=== PATIENT | female | born 1955 | race Caucasian/White ===

== ENCOUNTER → 2024-08-23 08:59 | Outpatient (CLI) | payer MEDICARE, BC, SELFPAY ==
[2024-08-23 10:22] LABS: Alanine Aminotransferase 21 IU/L (<35); Albumin 4.3 g/dL (3.5-5.0); Albumin Globulin Ratio 1.6 (1.0-2.8); Alkaline Phosphatase 72 U/L (38-126); Aspartate Aminotransferase 31 IU/L (14-36); BUN Creatinine Ratio 22.7 (6-22); Bilirubin Total 1.2 mg/dL (0.2-1.3); Blood Urea Nitrogen 20 mg/dL (7-17); Calcium 9.3 mg/dL (8.4-10.2); Carbon Dioxide 30 mmol/L (22-32); Chloride 104 mmol/L (98-107); Cholesterol 294 mg/dL (140-199); Estimated Glomerular Filt Rate > 60 mL/min (>60); Globulin 2.7 g/dL (1.7-4.1); Glucose 91 mg/dL (80-110); HDL Cholesterol 69 mg/dL (40-60); HEMOLYSIS < 15 (0-50); LDL Cholesterol Calculated 201 mg/dL (<100); Sodium 139 mmol/L (137-145); Triglycerides 119 mg/dL (35-150)
== END ==
PROVIDERS: PCP Family Medicine; Referring Provider Physician Assistant; Visit Provider Physician Assistant
DX: I10 Essential (primary) hypertension (principal); E78.5 Hyperlipidemia, unspecified
CPT/HCPCS: 36415; 80053; 80061

== ENCOUNTER 2025-01-09 09:53 | Day surgery (SDC) | payer MEDICARE, BC, SELFPAY ==
[2025-01-09 10:13] VITALS: BP 147/82; PULSE 71; RESP 16; TEMP 36.5; O2SAT 99
[2025-01-09] MEDS: LACTATED RINGERS 1,000 ML 42 ML IV (10:29)
--- NOTE | 2025-01-09 10:38 | P.HP_ITS ---
History of Present Illness History of Present Illness Date Patient Seen: 01/09/25 Time Patient Seen: 10:38 Chief complaint: Screening Colonoscopy Narrative: 69-year-old white female, last colonoscopy in 2018 with diverticulosis. Personal history of breast cancer. Has had some left lower quadrant pain, but otherwise no changes in bowel habits. [facility] Medical History Osteoarthritis of hips, bilateral Sleep apnea Allergies Depression Foot pain Cataracts, bilateral Diverticular disease Cardiac arrhythmia History of breast cancer (~2019) Hyperlipidemia Hypertension Surgical History Anesthesia History of section History of breast surgery (~2019) History of left hip replacement (~07/2023) Family History Father History of heart disease Hypertension Hyperlipidemia Mother Seizure Hypertension Polymyalgia rheumatica Brother Hypertension Sister Multiple myeloma Cancer Grandfather Stroke Grandmother Cancer Grandfather Cancer Grandmother History of heart disease Hyperlipidemia Hypertension Stroke Social History Smoking Status: Never smoker alcohol intake: current Meds Home Medications and Allergies Home Medications Medication Instructions Recorded Confirmed Type atorvastatin 10 mg tablet 10 mg PO DAILY #5 tabs 09/21/24 01/09/25 Rx lisinopril 10 mg tablet 10 mg PO DAILY #90 tabs 10/23/24 01/09/25 Rx sodium,potassium,mag sulfates 17.5 See Rx Instructions PO .COMPLEX 12/08/24 Rx gram-3.13 gram-1.6 gram oral soln #354 mL (Suprep Bowel Prep Kit) Cq10 100 mg PO DAILY 01/09/25 History aspirin 81 mg chewable tablet 81 mg PO DAILY 01/09/25 01/09/25 History Allergies Allergy/AdvReac Type Severity Reaction Status Date / Time albuterol AdvReac Headache Verified 01/09/25 10:30 Exam Vital Signs (past 8 hours): - 01/09/25 10:13 Temperature 97.7 F Pulse Rate 71 Respiratory Rate 16 Blood Pressure 147/82 H Pulse Oximetry 99 Oxygen Delivery Method Room Air Oxygen Delivery Method Room Air Narrative Exam Narrative: Gen: NAD, sitting comfortably in bed, appears well HEENT: Sclera are anicteric, head is normocephalic and atraumatic, trachea is midline. CV: RRR, no JVD Resp: clear to auscultation bilaterally, equal chest wall movement bilaterally Abd: soft, nontender, normoactive bowel sounds Ext: no edema, full range of motion Neuro: Cranial nerves II-XII grossly intact, no focal deficits Skin: No erythema or ecchymosis Assessment & Plan Assessment and plan (1) Colon cancer screening: Status: Acute Assessment & Plan narrative: Patient presents for colonoscopy Risks, benefits, alternatives to colonoscopy explained, including but not limited to bowel perforation or other serious complication requiring surgery at less than 1 in 5000 colonoscopies, abdominal pain, cramping or bleeding and less than 1% of colonoscopies, and the chances that we find a diagnosis that would require further intervention of about 2%. Patient agrees to proceed. Time-Based Coding :: [TOTAL MINUTES] spent with patient and on the chart (including review of chart, obtaining history, exam, reviewing outside data, placing orders, documenting exam and treatment plan, and counseling patient) on [DATE]. PROFEE Dog Food Shredder Operator Document charge(s): No
--- NOTE | 2025-01-09 11:04 | PM.OP.COLON ---
Operative Date/Time/Diagnoses Date of procedure: 01/09/25 Time of procedure: 11:04 Pre-op diagnosis: Colon screening Post-op diagnosis: same (Diverticulosis) Procedure & Clinicians Study performed: Colonoscopy Same procedure as scheduled: Yes Indications: Colon screening Surgeon: Todd Foster Procedure Notes SCOAP/Timeout: Performed Procedure in detail: Time-out was performed. Mac was induced. Patient was placed in left lateral decubitus position. The perineum was inspected without any gross abnormality. Lubricated pediatric colonoscope was inserted and advanced to the cecum. The terminal ileum was intubated. The colonoscope was withdrawn slowly inspecting the circumference of the colon. Extensive sigmoid diverticulosis was noted. Very small polyps may have been missed, prep quality was adequate. Retroflexed view of the rectum showed small, non prolapsed nonbleeding internal hemorrhoids. The scope was withdrawn the patient was taken to PACU in good condition. Scope withdrawal time: 6 Findings: divertiulosis Specimen(s): none sent Complications: none Impression: Diverticulosis Post-procedure Recommendations: Colonoscopy in 10 years Follow up: as needed Disposition: PACU
[2025-01-09 11:06] VITALS: BP 123/73; PULSE 70; RESP 16; TEMP 36.1; O2SAT 96
[2025-01-09 11:11] VITALS: BP 116/77; PULSE 72; RESP 16; O2SAT 97
[2025-01-09 11:16] VITALS: BP 124/85; PULSE 87; RESP 16; TEMP 36.1; O2SAT 96
[2025-01-09 11:24] VITALS: BP 125/83; PULSE 82; RESP 16; TEMP 36.1; O2SAT 96
== END 2025-01-09 11:30 | disposition home or self-care (01) ==
PROVIDERS: PCP Family Medicine; Referring Provider Surgery; Visit Provider Surgery
PROC: 0DJD8ZZ Inspection of Lower Intestinal Tract, Via Natural or Artificial Opening Endoscopic (ICD-10-PCS; CPT 45378; principal; 2025-01-09 11:00)
DX: Z12.11 Encounter for screening for malignant neoplasm of colon (principal); K57.30 Diverticulosis of large intestine without perforation or abscess without bleeding; K64.8 Other hemorrhoids
CPT/HCPCS: G0121; J2405; J2704

== ENCOUNTER → 2025-03-28 06:48 | Outpatient (CLI) | payer MEDICARE, BC, SELFPAY ==
--- NOTE | 2025-03-28 06:50 | DI.US.S_ITS ---
PROCEDURE: US SOFT TISSUE ABDOMEN INDICATIONS: LEFT LOWER QUADRANT/FLANK LUMP X YEARS TECHNIQUE: Real-time focused scanning was performed of the abdomen, with image documentation. COMPARISON: None. FINDINGS/IMPRESSION: Mildly hypoechoic, heterogeneous mass within the area of concern with minimal vascularity measuring 6.6 x 3.5 x 2.2 cm. Etiology is uncertain and includes both benign and malignant etiologies. Consider MRI for further evaluation. Dictated by: Julio Kam M.D. on 03/28/2025 at 13:35 Approved by: Julio Kam M.D. on 03/28/2025 at 13:37
== END ==
LOC: US 06:49
PROVIDERS: PCP Family Medicine; Referring Provider Family Medicine; Visit Provider Family Medicine
DX: R93.89 Abnormal findings on diagnostic imaging of other specified body structures (principal); R19.04 Left lower quadrant abdominal swelling, mass and lump
CPT/HCPCS: 76705

== ENCOUNTER → 2025-04-12 12:00 | Outpatient (CLI) | payer MEDICARE, BC, SELFPAY ==
--- NOTE | 2025-04-12 12:02 | DI.CT.S_ITS ---
PROCEDURE: CT ABDOMEN PELVIS W CON INDICATIONS: Mildly hypoechoic, heterogeneous mass TECHNIQUE: After the administration of intravenous contrast, axial sections acquired from the lung bases to the pubic symphysis. Coronal and sagittal reformats were performed. For radiation dose reduction, the following was used: automated exposure control, adjustment of mA and/or kV according to patient size. COMPARISON: [facility], , US SOFT TISSUE ABDOMEN, 03/28/2025, 7:27. FINDINGS: Image quality: Diagnostic. Lower Chest: No significant findings. ABDOMEN: Liver: No solid mass. Subcentimeter hypoattenuating lesion in segment 7, too small to characterize by CT. Gallbladder: Gallbladder sludge versus small stones. No wall thickening or pericholecystic edema to suggest acute cholecystitis. Biliary ducts: No biliary dilation. Pancreas: No ductal dilation. Spleen: Size is within normal limits. Adrenal Glands: No adrenal nodules. Kidneys and Ureters: No hydronephrosis. No solid mass. No complex renal cystic lesion which requires follow up. Stomach and Bowel: Normal colonic caliber, without significant wall thickening. Colonic diverticulosis without evidence of diverticulitis. Fecal debris within the small bowel. Peritoneum: No abnormal intraperitoneal fluid. No free air. Ventral Wall: No significant ventral hernia. Small umbilical hernia containing fat. There is non complex fat within the left flank. No soft tissue identified. Abdominal Nodes: No retroperitoneal or mesenteric adenopathy by size criteria. Vessels: Aorta and inferior vena cava are normal in size. PELVIS: Pelvic Organs: Unremarkable. Bladder: No bladder wall thickening, accounting for underdistention. Pelvic Nodes: No enlarged lymph nodes. Miscellaneous: No inguinal hernias are seen. Bones: No aggressive osseous abnormality. IMPRESSION: Non complex fat in the left flank, without suspicious soft tissue. 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 If this demonstrates significant interval growth or pain, surgical referral would be recommended to exclude low-grade liposarcoma. Fecal debris within the small-bowel, usually indicating small intestinal bacterial overgrowth versus slow transit. Colonic diverticulosis without evidence of diverticulitis. Dictated by: Twin Newell M.D. on 04/12/2025 at 15:46 Approved by: Twin Newell M.D. on 04/12/2025 at 15:54
[2025-04-12 12:49] LABS: Estimated Glomerular Filt Rate > 60 mL/min (>60)
== END ==
PROVIDERS: PCP Family Medicine; Referring Provider Family Medicine; Visit Provider Family Medicine
DX: K57.90 Diverticulosis of intestine, part unspecified, without perforation or abscess without bleeding (principal); R19.04 Left lower quadrant abdominal swelling, mass and lump; K42.9 Umbilical hernia without obstruction or gangrene
CPT/HCPCS: 36415; 74177; 82565; Q9967

== ENCOUNTER 2025-07-21 17:49 | Emergency (ER) | payer MEDICARE, OTHER, SELFPAY ==
[2025-07-21] VITALS (26 sets, daily range): BP systolic 147–218; BP diastolic 82–106; PULSE 63–92; RESP 8–26; TEMP 37.1; O2SAT 92–98; BMI 32.5
--- NOTE | 2025-07-21 18:09 | EKG_ITS ---
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
[2025-07-21] MEDS: LOSARTAN 50 MG TABLET PO (20:49)
[2025-07-21 22:22] LABS: Add Manual Diff / Slide Review NO; Hematocrit 38.6 % (36-46); Hemoglobin 13.6 g/dL (12.0-16.0); INR 0.9 (0.9-1.3); Lymphocytes Absolute Auto 1000 /uL (1100-4500); Mean Corpuscular HGB Conc 35.2 % (30-36); Mean Corpuscular Hemoglobin 31.5 PG (26-34); Mean Corpuscular Volume 89.5 fL (80-100); Platelet Count 160 X10^3/uL (150-400); Prothrombin Time 10.6 SECONDS (9.4-12.5)
[2025-07-21 22:24] LABS: PTT Partial Thromboplastin Tim 28 SECONDS (25.1-36.5)
[2025-07-21 22:31] LABS: Alanine Aminotransferase 22 IU/L (<35); Albumin 4.4 g/dL (3.5-5.0); Albumin Globulin Ratio 1.4 (1.0-2.8); Alkaline Phosphatase 73 U/L (38-126); Blood Urea Nitrogen 21 mg/dL (7-17); Calcium 9.3 mg/dL (8.4-10.2); Carbon Dioxide 28 mmol/L (22-32); Chloride 105 mmol/L (98-107); Creatine Kinase 121 U/L (30-135); Estimated Glomerular Filt Rate > 60 mL/min (>60); Globulin 3.1 g/dL (1.7-4.1); Glucose 99 mg/dL (70-99); HEMOLYSIS < 15 (0-50); Lipase 146 U/L (23-300); Magnesium 2.1 mg/dL (1.6-2.3); Potassium 3.8 mmol/L (3.4-5.1); Sodium 138 mmol/L (137-145); Total Protein 7.5 g/dL (6.3-8.2)
[2025-07-21 22:43] LABS: NT-proBNP (BNP-Adult 18+) 209 pg/mL (<125); Troponin I < 0.012 ng/mL (0.01-0.034)
[2025-07-21] MEDS: LABETALOL 20 MG/4 ML SYRINGE 5 MG IV (22:46)
--- NOTE | 2025-07-21 23:51 | ED.GENADULT ---
HPI - General Adult General Chief complaint: Hypertension Stated complaint: High BP Time Seen by Provider: 07/21/25 19:49 Source: patient Mode of arrival: Ambulatory History of Present Illness HPI narrative: [age] year old female with a history of hypertension who has recently been instructed by her PCP to start hydrochlorothiazide but has not started it yet comes in for a blood pressure reading that is higher than normal. Patient initially had no symptoms but during her course here in the ED, patient started having a slight headache. She denies any chest pain shortness of breath or any other symptoms. Related Data Home Medications ?Medication ?Instructions ?Recorded ?Confirmed aspirin 81 mg chewable tablet 81 mg PO DAILY 01/09/25 07/13/25 coenzyme Q10 100 mg capsule (Co 100 mg PO DAILY 05/14/25 07/13/25 Q-10) fluticasone propionate 50 1 spray intranasal BID PRN 05/14/25 07/13/25 mcg/actuation nasal spray,suspension (Allergy Relief (fluticasone)) Previous Rx's ?Medication ?Instructions ?Recorded atorvastatin 10 mg tablet 10 mg PO DAILY #5 tabs 09/21/24 losartan 50 mg tablet 50 mg PO DAILY #90 tabs 07/17/25 hydrochlorothiazide 12.5 mg tablet 12.5 mg PO DAILY #90 tabs 07/18/25 lorazepam 0.5 mg tablet 0.5 mg PO ONCE PRN MRI/prior to 07/20/25 imaging #2 tabs Allergies Allergy/AdvReac Type Severity Reaction Status Date / Time albuterol AdvReac Headache Verified 07/21/25 17:53 Review of Systems Review of Systems ROS Unobtainable: All systems reviewed & are unremarkable except as noted in HPI and below Patient History Medical History (Updated 07/21/25 @ 23:53 by Bird Medina MD) History of breast cancer (~2019) Chronic cough Osteoarthritis of hips, bilateral Sleep apnea Allergies Depression Foot pain Cataracts, bilateral Diverticular disease Cardiac arrhythmia Hyperlipidemia Hypertension Surgical History Anesthesia History of section History of breast surgery (~2019) History of left hip replacement (~07/2023) Family History Father History of heart disease Hypertension Hyperlipidemia Mother Seizure Hypertension Polymyalgia rheumatica Brother Hypertension Sister Multiple myeloma Cancer Grandfather Stroke Grandmother Cancer Grandfather Cancer Grandmother History of heart disease Hyperlipidemia Hypertension Stroke Social History alcohol intake: current Exam Narrative Exam Narrative: General: Patient appears to be in no acute distress, acting appropriately Head: normocephalic, atraumatic, HEENT: Pupils equal round reactive, eyes tracking well, neck supple, no JVD Heart: regular rate and rhythm, no murmurs, rubs, or gallops heard Lungs: clear to auscultation, no adventitious sounds Abdomen: soft , nontender, nondistended, positive bowel sounds Neurological: no focal neurological signs, moving all extremities well, alert and oriented x3, Psych: good judgment ,good insight, mood is normal. Initial Vital Signs Initial Vital Signs: Vital Signs Temperature 98.7 F 07/21/25 17:52 Pulse Rate 92 H 07/21/25 17:52 Respiratory Rate 16 07/21/25 17:52 Blood Pressure 218/98 H 07/21/25 17:52 Pulse Oximetry 98 07/21/25 17:52 Oxygen Delivery Method Room Air 07/21/25 17:52 Course Orders Ordered: ED Orders 07/21/25 18:09 EKG-12 Lead Stat 07/21/25 21:44 Complete Blood Count AUTO DIFF Stat Comprehensive Metabolic Panel Stat Lipase Stat Magnesium Stat NT-proBNP (BNP-Adult 18+) Stat PTT Partial Thromboplastin Yan Stat Prothrombin Time INR Stat Troponin & CK Cardiac Panel Stat Discontinued Medications Labetalol HCl (Labetalol 20 Mg/4 Ml Syringe) 5 mg IV NOW ONE Stop: 07/21/25 22:16 Last Admin: 07/21/25 22:46 Dose: 5 mg Documented By: LEONILA Losartan Potassium (Losartan 50 Mg Tablet) 50 mg PO NOW ONE Stop: 07/21/25 20:30 Last Admin: 07/21/25 20:49 Dose: 50 mg Documented By: LEONILA Reevaluation(s) Reevaluation #1: Upon re-evaluation after being given her losartan home dose of 50 mg and labetalol 5 mg, patient's blood pressure is now in the 150s over 90s and the patient is asymptomatic. Vital Signs Vital signs: Vital Signs - 8 hr 07/21/25 17:52 07/21/25 19:56 07/21/25 19:56 Temperature 98.7 F Pulse Rate 92 H 74 Respiratory Rate 16 Blood Pressure 218/98 H 184/96 H Pulse Oximetry 98 98 Oxygen Delivery Method Room Air 07/21/25 19:59 07/21/25 20:00 07/21/25 20:00 Temperature Pulse Rate 82 84 Respiratory Rate Blood Pressure 176/95 H Pulse Oximetry 97 95 Oxygen Delivery Method 07/21/25 20:30 07/21/25 20:30 07/21/25 20:49 Temperature Pulse Rate 82 82 Respiratory Rate Blood Pressure 172/97 H 172/97 H Pulse Oximetry 94 Oxygen Delivery Method 07/21/25 21:00 07/21/25 21:00 07/21/25 21:33 Temperature Pulse Rate 81 68 Respiratory Rate Blood Pressure 201/95 H Pulse Oximetry 94 98 Oxygen Delivery Method 07/21/25 21:34 07/21/25 21:34 07/21/25 22:00 Temperature Pulse Rate 83 Respiratory Rate Blood Pressure 199/106 H 189/91 H Pulse Oximetry 96 Oxygen Delivery Method 07/21/25 22:00 07/21/25 22:30 07/21/25 22:30 Temperature Pulse Rate 69 72 Respiratory Rate 10 L 8 L Blood Pressure 178/96 H Pulse Oximetry 96 96 Oxygen Delivery Method 07/21/25 22:30 07/21/25 22:30 07/21/25 22:46 Temperature Pulse Rate 72 Respiratory Rate Blood Pressure 178/96 H 178/96 H 178/86 H Pulse Oximetry Oxygen Delivery Method 07/21/25 22:50 07/21/25 22:50 07/21/25 22:55 Temperature Pulse Rate 70 Respiratory Rate 11 L Blood Pressure 152/86 H 157/82 H Pulse Oximetry 93 Oxygen Delivery Method 07/21/25 22:55 07/21/25 23:00 07/21/25 23:00 Temperature Pulse Rate 65 68 Respiratory Rate 14 10 L Blood Pressure 157/84 H Pulse Oximetry 94 92 Oxygen Delivery Method 07/21/25 23:05 07/21/25 23:05 07/21/25 23:10 Temperature Pulse Rate 73 Respiratory Rate 20 Blood Pressure 155/83 H 155/86 H Pulse Oximetry 94 Oxygen Delivery Method 07/21/25 23:10 07/21/25 23:15 07/21/25 23:15 Temperature Pulse Rate 69 66 Respiratory Rate 19 12 Blood Pressure 158/85 H Pulse Oximetry 94 93 Oxygen Delivery Method 07/21/25 23:20 07/21/25 23:20 07/21/25 23:25 Temperature Pulse Rate 67 Respiratory Rate 21 Blood Pressure 151/86 H 151/84 H Pulse Oximetry 93 Oxygen Delivery Method 07/21/25 23:25 07/21/25 23:30 07/21/25 23:30 Temperature Pulse Rate 66 65 Respiratory Rate 16 18 Blood Pressure 158/84 H Pulse Oximetry 95 93 Oxygen Delivery Method 07/21/25 23:35 07/21/25 23:35 07/21/25 23:40 Temperature Pulse Rate 66 Respiratory Rate 18 Blood Pressure 147/84 H 150/83 H Pulse Oximetry 93 Oxygen Delivery Method 07/21/25 23:40 07/21/25 23:45 07/21/25 23:45 Temperature Pulse Rate 63 72 Respiratory Rate 18 21 Blood Pressure 151/91 H Pulse Oximetry 92 94 Oxygen Delivery Method 07/21/25 23:50 07/21/25 23:50 07/21/25 23:55 Temperature Pulse Rate 69 Respiratory Rate 26 H Blood Pressure 165/97 H 162/92 H Pulse Oximetry 96 Oxygen Delivery Method 07/21/25 23:55 07/22/25 00:00 07/22/25 00:00 Temperature Pulse Rate 71 70 Respiratory Rate 17 13 Blood Pressure 163/92 H Pulse Oximetry 95 94 Oxygen Delivery Method 07/22/25 00:05 07/22/25 00:05 07/22/25 00:07 Temperature Pulse Rate 75 74 Respiratory Rate 30 H 32 H Blood Pressure 166/102 H Pulse Oximetry 96 97 Oxygen Delivery Method Room Air Room Air 07/22/25 00:07 Temperature Pulse Rate Respiratory Rate Blood Pressure 159/91 H Pulse Oximetry Oxygen Delivery Method Medical Decision Making Lab Data 07/21/25 21:44 07/21/25 21:44 Labs: Lab Results 07/21/25 Range/Units 21:44 WBC 4.3 L (4.5-11.0) X10^3/uL RBC 4.32 (4.0-5.2) X10^6/uL Hgb 13.6 (12.0-16.0) g/dL Hct 38.6 (36-46) % MCV 89.5 (80-100) fL MCH 31.5 (26-34) PG MCHC 35.2 (30-36) % RDW 13.6 (11.6-14.8) % Plt Count 160 (150-400) X10^3/uL Neut % (Auto) 65.0 (50-75) % Lymph % (Auto) 22.9 L (25-40) % [place] % (Auto) 8.6 (3-14) % Eos % (Auto) 2.8 (2-4) % Baso % (Auto) 0.7 (0-2) % Neut # (Auto) 2800 (0618-1195) /uL Lymph # (Auto) 1000 L (5519-9069) /uL [place] # (Auto) 400 (0-900) /uL Eos # (Auto) 100 (0-450) /uL Baso # (Auto) 0 (0-100) /uL PT 10.6 (9.4-12.5) SECONDS INR 0.9 (0.9-1.3) APTT 28 (25.1-36.5) SECONDS Sodium 138 (137-145) mmol/L Potassium 3.8 (3.4-5.1) mmol/L Chloride 105 (98-107) mmol/L Carbon Dioxide 28 (22-32) mmol/L BUN 21 H (7-17) mg/dL Creatinine 0.93 (0.52-1.04) mg/dL Estimated GFR > 60 (>60) mL/min BUN/Creatinine Ratio 22.6 H (6-22) Glucose 99 (70-99) mg/dL Calcium 9.3 (8.4-10.2) mg/dL Magnesium 2.1 (1.6-2.3) mg/dL Total Bilirubin 1.6 H (0.2-1.3) mg/dL AST 32 (14-36) IU/L ALT 22 (<35) IU/L Alkaline Phosphatase 73 (38-126) U/L Total Creatine Kinase 121 (30-135) U/L Troponin I < 0.012 (0.01-0.034) ng/mL NT-Pro-B Natriuret Pep 209 H (<125) pg/mL Total Protein 7.5 (6.3-8.2) g/dL Albumin 4.4 (3.5-5.0) g/dL Globulin 3.1 (1.7-4.1) g/dL Albumin/Globulin Ratio 1.4 (1.0-2.8) Lipase 146 (23-300) U/L ECG Data Interpretation: EKG shows a normal axis, normal sinus rhythm, 96 beats per minute, normal TX intervals and no STT wave changes. MDM Narrative Medical decision making narrative: 70-year-old female with a history of hypertension came in with blood pressure readings that were in the 200s over 90s. Patient initially was asymptomatic but later during the course of her being here, she had a slight headache and so a cardiac workup was done which was negative. Patient was given some labetalol 5 mg IV as well as her home losartan 50 mg dose. Patient's blood pressure went down to the 150s over 90s and patient became asymptomatic. She was eager to be discharged. Patient has not yet to start her hydrochlorothiazide that was recommended by her PCP. Advised to go ahead and start it and follow up with PCP for potential adjustments to her blood pressure medications. Discharge Plan Departure Patient Disposition: Home Clinical Impression: Hypertensive urgency Instructions: DI for High Blood Pressure Activity Restrictions/Additional Instructions: Continue with losartan and hydrochlorothiazide as prescribed. Follow up PCP as planned. May need a renal or kidney ultrasound to rule out secondary reasons for hypertension. Continue to monitor for any side effects from the blood pressure medications such as dizziness. Prescriptions: No Action atorvastatin 10 mg tablet 10 mg PO DAILY Qty: 5 0RF losartan 50 mg tablet 50 mg PO DAILY Qty: 90 3RF hydrochlorothiazide 12.5 mg tablet 12.5 mg PO DAILY Qty: 90 2RF lorazepam 0.5 mg tablet 0.5 mg PO ONCE PRN (Reason: MRI/prior to imaging) Qty: 2 0RF coenzyme Q10 [Co Q-10] 100 mg capsule 100 mg PO DAILY fluticasone propionate [Allergy Relief (fluticasone)] 50 mcg/actuation spray,suspension 1 spray intranasal BID PRN Rx Instructions: administer into each nostril aspirin 81 mg Tablet,Chewable 81 mg PO DAILY Referrals: Genna Ritter DO [Primary Care Provider, Family Practice] Stand Alone Forms: Patient Portal/API
[2025-07-22] VITALS: BP 163/92; PULSE 70; RESP 13; O2SAT 94
[2025-07-22 00:05] VITALS: BP 166/102; PULSE 75; RESP 30; O2SAT 96
[2025-07-22 00:07] VITALS: BP 159/91; PULSE 74; RESP 32; O2SAT 97
== END 2025-07-22 00:12 | disposition home or self-care (01) ==
PROVIDERS: Emergency Provider Family Medicine; PCP Family Medicine
DX: I16.0 Hypertensive urgency (principal); I10 Essential (primary) hypertension; T50.2X6A Underdosing of carbonic-anhydrase inhibitors, benzothiadiazides and other diuretics, initial encounter; Z91.148 Patient's other noncompliance with medication regimen for other reason
CPT/HCPCS: 36415; 80053; 82550; 83690; 83735; 83880; 84484; 85025; 85610; 85730; 93005; 93010; 96374; 99284

== ENCOUNTER → 2025-07-25 12:13 | Outpatient (CLI) | payer MEDICARE, OTHER, SELFPAY ==
--- NOTE | 2025-07-25 12:14 | DI.MRI.S_ITS ---
MR breast BI wo/w con: 07/25/2025. BI-RADS: 3
== END ==
LOC: MRI 12:14
PROVIDERS: PCP Family Medicine; Referring Provider Family Medicine; Visit Provider Family Medicine
DX: R92.8 Other abnormal and inconclusive findings on diagnostic imaging of breast (principal); N64.4 Mastodynia; R92.323 Mammographic fibroglandular density, bilateral breasts; Z85.3 Personal history of malignant neoplasm of breast
CPT/HCPCS: 77049; A9579

== ENCOUNTER 2025-08-14 06:24 | Day surgery (SDC) | payer MEDICARE, OTHER, SELFPAY ==
[2025-07-25 13:37] VITALS: BMI 32.5
--- NOTE | 2025-08-14 | PATH_ITS ---
[facility] Accession Number: [id number] No. of containers..01 Tissue . 01 Material submitted: . hip - LEFT HIP LIPOMA . 01 Diagnosis: SOFT TISSUE, LEFT HIP LIPOMA, EXCISION: Mature adipose tissue, consistent with lipoma. MRV 08/24/2025 1239 Local . 01 Electronically signed: . Della Rodriguez MD, Pathologist NPI- [id number] . 01 Gross description: . Received is one formalin-filled container labeled with the patient's name and labeled left hip lipoma. The specimen consists of a yellow-ward piece of adipose tissue which measures 6.5 x 4.5 x 2.0 cm. Inked, and four medical sales representative sections are submitted in cassettes A1-A2. ([id number]) /DEIRDRE 08/21/2025 0138 Local . 01 Pathologist provided ICD-10: D17.9 . 01 CPT . 356084 Specimen Comment: A courtesy copy of this report has been sent to [facility] Pathology Performed at: [address] [address], [place], [place] [id number] MD Alonso Castaneda MD Phone: [phone]
--- NOTE | 2025-08-14 06:39 | PM.HP.IH.1 ---
History of Present Illness History of Present Illness Date Patient Seen: 08/14/25 Chief complaint: Removal large L hip mass Narrative: 70yo F presents for excision Left hip mass today. [facility] Medical History (Updated 08/14/25 @ 06:40 by Noel Staley MD) Gilbert syndrome Breast cancer (2019) History of breast cancer (~2019) Chronic cough Osteoarthritis of hips, bilateral Sleep apnea Allergies Depression Foot pain Cataracts, bilateral Diverticular disease Cardiac arrhythmia Hyperlipidemia Hypertension Surgical History (Updated 07/25/25 @ 14:07 by Marisela Campoverde RN) Hx of breast surgery (10/2022) Hx of breast reconstruction S/P bilateral breast reduction (06/2020) History of lumpectomy of right breast (05/2020) History of eyelid surgery (~2024) Anesthesia History of section History of left hip replacement (~07/2023) Family History Father History of heart disease Hypertension Hyperlipidemia Mother Seizure Hypertension Polymyalgia rheumatica Brother Hypertension Sister Multiple myeloma Cancer Grandfather Stroke Grandmother Cancer Grandfather Cancer Grandmother History of heart disease Hyperlipidemia Hypertension Stroke Social History Smoking Status: Never smoker alcohol intake: current Meds Home Medications and Allergies Home Medications ?Medication ?Instructions ?Recorded ?Confirmed ?Type atorvastatin 10 mg tablet 10 mg PO DAILY #5 tabs 09/21/24 08/13/25 Rx aspirin 81 mg chewable tablet 81 mg PO DAILY 01/09/25 08/13/25 History coenzyme Q10 100 mg capsule (Co 100 mg PO DAILY 05/14/25 08/13/25 History Q-10) fluticasone propionate 50 1 spray intranasal BID PRN 05/14/25 07/13/25 History mcg/actuation nasal spray,suspension (Allergy Relief (fluticasone)) losartan 50 mg tablet 50 mg PO DAILY #90 tabs 07/17/25 08/13/25 Rx hydrochlorothiazide 12.5 mg tablet 12.5 mg PO DAILY #90 tabs 07/18/25 08/13/25 Rx lorazepam 0.5 mg tablet 0.5 mg PO ONCE PRN MRI/prior to 07/20/25 Rx imaging #2 tabs Allergies Allergy/AdvReac Type Severity Reaction Status Date / Time albuterol AdvReac Headache Verified 07/21/25 17:53 lisinopril AdvReac Cough Verified 07/25/25 14:04 Exam Narrative Exam Narrative: Const General: healthy appearing, comfortable and no acute distress Orientation: alert and oriented x3 HENMT Ears: hearing grossly normal bilaterally Eyes Visual Ramirez: normal visual ramirez by confrontation Conjunctivae: conjunctivae normal Sclera: sclerae normal EOM: EOM intact bilaterally Resp Effort & Inspection: normal respiratory effort and able to speak in complete sentences Cardio Rate: regular rate GI Palpation: soft (NT) Extrem General: no pedal edema and no calf tenderness Assessment & Plan Assessment and plan (1) Hip mass: Qualifiers: Laterality: left Qualified Code(s): R22.42 - Localized swelling, mass and lump, left lower limb Status: Acute Plan Excision large left hip mass. The risks, benefits and options regarding the procedure were explained to the patient in detail. Risk discussion included but not limited to: bleeding, infection, recurrence. The patient was encouraged to ask questions and they were answered to their satisfaction. The patient understands and is agreeable to proceed. Time-Based Coding :: [TOTAL MINUTES] spent with patient and on the chart (including review of chart, obtaining history, exam, reviewing outside data, placing orders, documenting exam and treatment plan, and counseling patient) on [DATE]. PROFEE Business Unit Director Document charge(s): Yes Charge Codes Inpatient/observation care including admit and discharge same day: [id number]
[2025-08-14] MEDS: ACETAMINOPHEN 325 MG TABLET 975 MG PO (06:48)
[2025-08-14] MEDS: LACTATED RINGERS 1,000 ML 42 ML IV (06:48)
[2025-08-14] MEDS: FAMOTIDINE 20 MG/2 ML VIAL IV (06:49)
[2025-08-14 07:01] VITALS: BP 129/80; PULSE 79; RESP 16; TEMP 36.6; O2SAT 97
--- NOTE | 2025-08-14 07:55 | SUR.OPER ---
Supine on padded OR bed, head on pillow, arms secured on padded arm boards at <90 degrees abduction, legs uncrossed, safety belt at thigh, tape over blanket over lower legs.
[2025-08-14] MEDS: BUPivacaine 0.25% W/ EPI (PF) 30 ML VIAL 60 ML INJ (08:02)
--- NOTE | 2025-08-14 08:05 | P.OP_ITS ---
Operative Date/Time/Diagnoses Date of procedure: 08/14/25 Time of procedure: 08:05 Pre-op diagnosis: Left flank mass Post-op diagnosis: same Procedure & Clinicians Procedure: Excision left flank mass, 8x5cm Same procedure(s) as scheduled: Yes Indications: 70yo F with painful left flank mass, imaging questioned sarcoma Surgeon: Noel Staley Assisted?: Yes Commercial Sewing Instructor: Vlad Grant Anesthesia Type: MAC +/- Operative Notes Findings: 8x5cm clinical lipoma left flank Closure Type: primary Specimen(s): other (mass) Applied: none Estimated Blood Loss (mL): 5 Blood products transfused: none Procedure in detail: After informed consent and satisfactory sedation, the left flank was prepped and draped in the usual sterile manner. Surgical time-out was performed with all team members in agreement. The patient had appropriate DVT prophylaxis. The planned skin incision was injected with 0.25% Marcaine with epinephrine. The skin incision was made with a 15 blade and continued through the skin and s ubcutaneous tissues. The mass was a clinical lipoma measuring 8 cm x 5 cm. The lipoma was unilobular and was easily excised with blunt mobilization. This was sent to pathology for permanent section. Hemostasis was achieved with cautery. The subcutaneous plane was reapproximated using 3-0 Vicryl interrupted suture. The skin incision was closed using 4-0 Monocryl in a subcuticular manner. Efren mabond glue was applied as a final dressing. The estimated blood loss was minimal. The instrument sponge and needle counts were all correct x2. The patient tolerated the procedure well and was transported to the recovery area in stable condition. Complications: none Post-operative Condition: stable Disposition: PACU Plan for aftercare: PACU then home
[2025-08-14 08:18] VITALS: BP 133/66; PULSE 76; RESP 18; TEMP 36.4; O2SAT 92
[2025-08-14 08:23] VITALS: BP 129/66; PULSE 85; RESP 14; O2SAT 95
[2025-08-14 08:28] VITALS: BP 132/67; PULSE 77; RESP 13; O2SAT 93
[2025-08-14 08:31] VITALS: BP 128/65; PULSE 76; RESP 21; TEMP 36.4; O2SAT 97
[2025-08-14 08:45] VITALS: BP 110/68; PULSE 75; RESP 16; TEMP 36.1; O2SAT 95
== END 2025-08-14 08:50 | disposition home or self-care (01) ==
PROVIDERS: PCP Family Medicine; Referring Provider Surgery; Visit Provider Surgery
PROC: (CPT 27043; principal; 2025-08-14 07:45)
DX: D17.1 Benign lipomatous neoplasm of skin and subcutaneous tissue of trunk (principal); Z85.3 Personal history of malignant neoplasm of breast; I10 Essential (primary) hypertension; E78.5 Hyperlipidemia, unspecified; F32.A Depression, unspecified; M16.0 Bilateral primary osteoarthritis of hip
CPT/HCPCS: 27043; J1100; J2250; J2405; J2704; J3010; J7120

== ENCOUNTER → 2025-09-21 07:42 | Outpatient (CLI) | payer MEDICARE, OTHER, SELFPAY ==
[2025-09-21 08:03] LABS: Add Manual Diff / Slide Review NO; Hematocrit 38.4 % (36-46); Hemoglobin 13.4 g/dL (12.0-16.0); Lymphocytes Absolute Auto 1300 /uL (1100-4500); Mean Corpuscular HGB Conc 34.8 % (30-36); Mean Corpuscular Hemoglobin 31.3 PG (26-34); Mean Corpuscular Volume 89.9 fL (80-100); Platelet Count 155 X10^3/uL (150-400)
[2025-09-21 08:13] LABS: Hemoglobin A1C% w Est Avg Glu 5.1 % (4.0-6.0)
[2025-09-21 08:26] LABS: Alanine Aminotransferase 21 IU/L (<35); Albumin 4.2 g/dL (3.5-5.0); Albumin Globulin Ratio 1.6 (1.0-2.8); Alkaline Phosphatase 66 U/L (38-126); Blood Urea Nitrogen 22 mg/dL (7-17); Calcium 9.3 mg/dL (8.4-10.2); Carbon Dioxide 29 mmol/L (22-32); Chloride 103 mmol/L (98-107); Cholesterol 199 mg/dL (140-199); Estimated Glomerular Filt Rate > 60 mL/min (>60); Globulin 2.7 g/dL (1.7-4.1); Glucose 100 mg/dL (70-99); HDL Cholesterol 64 mg/dL (40-60); HEMOLYSIS < 15 (0-50); Potassium 4.0 mmol/L (3.4-5.1); Sodium 139 mmol/L (137-145); Total Protein 6.9 g/dL (6.3-8.2); Triglycerides 225 mg/dL (35-150)
[2025-09-21 08:56] LABS: TSH w/ Reflex to FT4 3.28 uIU/mL (0.47-4.68)
== END ==
PROVIDERS: PCP Family Medicine; Referring Provider Family Medicine; Visit Provider Family Medicine
DX: G47.30 Sleep apnea, unspecified (principal); I10 Essential (primary) hypertension; E78.5 Hyperlipidemia, unspecified; Z68.33 Body mass index [BMI] 33.0-33.9, adult
CPT/HCPCS: 36415; 80053; 80061; 83036; 84443; 85025

== ENCOUNTER → 2025-09-24 11:54 | Outpatient (CLI) | payer MEDICARE, OTHER, SELFPAY ==
--- NOTE | 2025-09-24 11:56 | DI.US.S_ITS ---
US breast LT limited, MM diagnostic mammo BI: 09/24/2025 BI-RADS: 2 CLINICAL: 70-year old female for bilateral diagnostic mammogram and left diagnostic breast ultrasound that is a follow-up to diagnostic breast MRI on 07/25/2025. No Tyrer-Cuzick risk score calculation due to the patient's personal history of breast cancer. Patient reports a history of right breast carcinoma diagnosed at age 66. Status-post right lumpectomy with hormonal therapy. No first-degree family history of breast cancer. The patient reports pain in both breasts. PRIOR EXAMS 07/25/2025, 07/25/2024, 07/19/2023, 05/04/2022, 11/02/2021, 04/22/2021, 05/09/2020, 04/25/2020, 03/27/2020. MAMMOGRAPHY TECHNIQUE: 2D and 3D (tomosynthesis) digital mammographic views obtained, with additional images as needed for full coverage. Current study was also evaluated with a Computer Aided Detection (CAD) system. ULTRASOUND TECHNIQUE TARGETED Left Breast Ultrasound: Real-time ultrasound exam was performed focused to area of clinical and/or imaging concern. Real-time trujillo scale and color doppler imaging of the area of clinical interest was performed with image documentation. DENSITY C. The breasts are heterogeneously dense, which may obscure small masses. MAMMOGRAPHY FINDINGS Right: Benign-appearing post-surgical changes noted on the right. There are no suspicious masses, calcifications, or other findings in the breast. Left (finding-1): at 6:00, 6 cm from nipple: There is no suspicious mammographic finding to account for imaging concern on MRI. There are no suspicious masses, calcifications, or other findings in the breast. Left: Benign-appearing post-surgical changes noted on the left. ULTRASOUND FINDINGS Left (finding-1): at 6:00, 6 cm from nipple: There is no sonographic abnormality to account for imaging concern on MRI. IMPRESSION: * No evidence of malignancy with benign findings. RECOMMENDATIONS Left: at 6:00, 6 cm from nipple * Recommend short interval MRI follow up due December 2025, per the MRI report from 07/25/2025. Bilateral * Non-focal symptoms, such as pain are typically benign. Clinical follow- up is recommended, and further management of these symptoms should be based on the results of clinical evaluation. If symptoms persist or become more focal in nature, further clinical evaluation should be considered. * Annual screening mammography. COMMENTS: Findings and recommendations were conveyed to the patient during today's evaluation. OVERALL ASSESSMENT CATEGORY BI-RADS-2: Benign. [employer] recommends annual screening mammography beginning at age 40 for women with average risk of breast cancer. ELECTRONICALLY SIGNED: Susan Torres M.D. on 09/24/2025 at 01:17:17 PM PT Interpreting Station ID: [id number]
== END ==
LOC: MAMMO 11:55
PROVIDERS: PCP Family Medicine; Referring Provider Family Medicine; Visit Provider Family Medicine
DX: R92.8 Other abnormal and inconclusive findings on diagnostic imaging of breast (principal); N64.4 Mastodynia; R92.333 Mammographic heterogeneous density, bilateral breasts; Z85.3 Personal history of malignant neoplasm of breast
CPT/HCPCS: 76642; 77066; G0279